=== PATIENT | female | born 1965 | race African-American/Black ===

== ENCOUNTER 2019-01-16 14:06 | Emergency (ER) | payer MEDICAID ==
[~2019-01-16] VITALS: Ht 162.6 cm; Wt 86.3 kg
[2019-01-16] MEDS ORDERED: FERR325T3 PO (14:17)
[2019-01-16] MEDS ORDERED: MEDR10TA PO (14:17)
[2019-01-16 15:27] LABS: BASO # 0.1 10^3/uL (0.0-0.2); BASO % 0.5 % (0.0-1.0); EOS # 0.6 10^3/uL (0.0-0.5); EOS % 5.7 % (0.0-3.0); HEMATOCRIT 33.8 % (36.0-47.0); LYMPH # 1.6 10^3/uL (1.5-5.0); LYMPH % 15.8 % (24.0-44.0); MEAN CORPUSCULAR HEMOGLOBIN 20.6 pg (27.0-33.0); MEAN CORPUSCULAR HGB CONC 32.5 g/dl (32.0-36.5); MEAN CORPUSCULAR VOLUME 63.3 fl (80.0-96.0); MONO # 0.7 10^3/uL (0.0-0.8); MONO % 7.3 % (0.0-5.0); NEUTROPHILS # 7.1 10^3/uL (1.5-8.5); NEUTROPHILS % 70.3 % (36.0-66.0); PLATELET COUNT, AUTOMATED 292 10^3/uL (150-450); RED BLOOD COUNT 5.34 10^6/uL (4.00-5.40); WHITE BLOOD COUNT 10.1 10^3/uL (4.0-10.0)
--- NOTE | 2019-01-16 16:53 | REP ---
Clinical: Vaginal bleeding. Technique: Transabdominal pelvic ultrasound. Findings: Enlarged heterogeneous myomatous uterus measures 25.0 x 13.0 x 21 cm. Two large heterogeneous presumed fibroids measure 12.1 x 11.7 x 11.0 cm and 11.8 x 9.7 x 8.7 cm encompassing much of the uterus and completely obscuring normal endometrium. Normal appearance of the bilateral ovaries. Right ovary measures 3.9 x 2.2 x 1.7 cm. Left ovary measures 2.9 x 1.7 x 1.8 cm. No pelvic fluid or ascites. Impression: Enlarged myomatous uterus with two large fibroids dominating the uterus and obscuring the endometrial complex. Electronically Signed by Sebastian Antunez MD 01/16/2019 04:45 P
[2019-01-16] MEDS ORDERED: PROV10TA PO (16:59)
[2019-01-16 17:15] VITALS: BP 156/90
[2019-01-16 17:34] LABS: CHLAMYDIA DNA AMPLIFICATION NEGATIVE (NEGATIVE); GC DNA AMPLIFICATION NEGATIVE (NEGATIVE)
== END 2019-01-16 17:25 | disposition home or self-care (01) ==
LOC: M ED 14:06
DX: N93.9 Abnormal uterine and vaginal bleeding, unspecified (principal); N92.0 Excessive and frequent menstruation with regular cycle; D25.9 Leiomyoma of uterus, unspecified; Z79.899 Other long term (current) drug therapy

== ENCOUNTER 2019-03-31 05:50 | Inpatient (IN) | payer MEDICAID, OTHER ==
[2019-03-31] VITALS (8 sets, daily range): BP systolic 133–149; BP diastolic 74–84
[~2019-03-31] VITALS: Ht 162.6 cm; Wt 87.1 kg
[~2019-03-31 05:50] MED LIST: FERR325T3 PO; IBUP-1114 PO; MEDR10TA PO; PROV10TA PO
[2019-03-31] MEDS ORDERED: LR 1,000 ML IV SCH ×3 (06:00→11:30)
[2019-03-31] MEDS ORDERED: ceFAZolin SOD 2 GM in IV 1 EA IV ONE (06:00)
[2019-03-31 06:31] LABS: HEMATOCRIT 29.1 % (36.0-47.0); HEMOGLOBIN 8.6 g/dl (12.0-15.5); MEAN CORPUSCULAR HEMOGLOBIN 17.7 pg (27.0-33.0); MEAN CORPUSCULAR HGB CONC 29.6 g/dl (32.0-36.5); PLATELET COUNT, AUTOMATED 266 10^3/uL (150-450); RED BLOOD COUNT 4.85 10^6/uL (4.00-5.40); WHITE BLOOD COUNT 5.3 10^3/uL (4.0-10.0)
[2019-03-31] MEDS ORDERED: ONDANSETRON 4MG/2ML VIAL (J2405) As Ordered ONE (07:05)
[2019-03-31] MEDS ORDERED: LIDOCAINE 2% INJ 100 MG/5 ML SDV (FOR ANES.) As Ordered ONE (07:05)
[2019-03-31] MEDS ORDERED: ACETAMINOPHEN 1000MG 100ML IV BTL (OFIRMEV) (J0131 PER 10MG) As Ordered ONE (07:05)
[2019-03-31] MEDS ORDERED: ROCURONIUM BROMIDE 50 MG/5 ML VIAL As Ordered ONE (07:05)
[2019-03-31] MEDS ORDERED: PROPOFOL 200 MG/20 ML VIAL As Ordered ONE (07:05)
[2019-03-31] MEDS ORDERED: SUGAMMADEX SODIUM 500 MG/5 ML VIAL (BRIDION) As Ordered ONE (07:05)
[2019-03-31] MEDS ORDERED: MIDAZOLAM INJ 2 MG/2 ML VIAL (J2250) As Ordered ONE (07:06)
[2019-03-31] MEDS ORDERED: fentaNYL 100 MCG/2 ML INJECTION (J3010) As Ordered ONE (07:06)
[2019-03-31] MEDS ORDERED: HYDROmorphone HCL 2 MG/ML 1ML VIAL (J1170) As Ordered ONE (09:05)
[2019-03-31] MEDS ORDERED: OXYC1TAB23 PO (10:54)
[2019-03-31] MEDS ORDERED: MORPHINE 10 MG/ML 1ML VIAL (J2270) As Ordered ONE (11:09)
[2019-03-31] MEDS: MORPHINE 10 MG/ML 1ML VIAL (J2270) IV PRN ×3 (11:15→11:25)
[2019-03-31] MEDS ORDERED: fentaNYL 100 MCG/2 ML INJECTION (J3010) IV PRN (11:30)
[2019-03-31] MEDS ORDERED: ONDANSETRON 4MG/2ML VIAL (J2405) IV PRN ×2 (11:30→11:45)
[2019-03-31] MEDS ORDERED: MORPHINE 4 MG/ML 1ML VIAL/SYRINGE (J2270) IV PRN (11:45)
[2019-03-31] MEDS ORDERED: PERCOCET 5MG/325MG TAB PO PRN (11:45)
--- NOTE | 2019-03-31 11:49 | RO ---
DATE OF OPERATION: 03/31/2019 PREOPERATIVE DIAGNOSIS: Large fibroid uterus. POSTOPERATIVE DIAGNOSIS: Large fibroid uterus. PROCEDURE: Total abdominal hysterectomy and bilateral salpingo-oophorectomy (TAHBSO). SURGEON: Hemanth Moise MD MRI ASSISTANT: Marta Schumacher MD ANESTHESIA: General endotracheal. ESTIMATED BLOOD LOSS: 400 mL. URINE OUTPUT: 400 mL. IV FLUIDS: 2 units red blood cells, 1400 mL of Lactated Ringer's. FINDINGS: 2150 gram large irregular fibroid uterus, normal ovaries and fallopian tubes. OPERATIVE SUMMARY: Patient was taken to the operating room where general endotracheal anesthesia was induced. She was prepped and draped in a sterile fashion in the supine position. Saavedra catheter was placed. A Pfannenstiel skin incision was made with a scalpel, carried through to the fascia, and fascia was nicked and extended and the fascia dissected off the rectus muscles. Peritoneal cavity was entered. The uterus was then exteriorized. The round ligaments were grasped with Jaylin clamps, incised and suture ligated with #0 Vicryl. A bladder flap was created. A window was created in the broad ligament and IP ligaments were cross clamped, suture ligated and incised. The uterine vessels were then skeletonized using Metzenbaum scissors. The uterine vessels were grasped with Gerson clamps perpendicular to the body of the cervix. The uterine vessels were incised and suture ligated with #0 Vicryl. A series of bites were taken parallel to the body of the cervix. Each bite was incised and suture ligated. Specimen containing the uterus, cervix, both tubes and ovaries were removed. The vaginal cuff was closed with #0 Vicryl in a running locked fashion. The pelvis was irrigated with good hemostasis noted. The ureters were identified away from the operative site. All instruments were removed. The perineum was closed with #2-0 Vicryl in a running fashion. The fascia was closed with #0 Vicryl in a running fashion. The deep layer was irrigated and closed with #3-0 chromic. The skin was closed with #4-0 Monocryl subcuticular sutures. Sponge, instrument and needle counts were correct. Marta Schumacher MD assisted throughout the entire procedure. He helped create each layer of the incision. He performed equal portions of the hysterectomy and helped to close.
[2019-03-31] MEDS: LR 1,000 ML IV SCH ×2 (13:00→20:28)
[2019-03-31] MEDS: KETOROLAC 30 MG/ML VIAL (J1885) IV PRN (15:29)
[2019-03-31] MEDS: DOCUSATE SODIUM 100 MG CAP PO SCH (20:27)
[2019-03-31] MEDS: PERCOCET 5MG/325MG TAB PO PRN (20:29)
[2019-04-01] VITALS: BP 126/69
[2019-04-01] MEDS: PERCOCET 5MG/325MG TAB PO PRN ×2 (00:45→21:39)
[2019-04-01 04:00] VITALS: BP 139/74
[2019-04-01] MEDS: KETOROLAC 30 MG/ML VIAL (J1885) IV PRN ×2 (04:44→13:53)
[2019-04-01 07:44] LABS: HEMATOCRIT 30.4 % (36.0-47.0); HEMOGLOBIN 9.4 g/dl (12.0-15.5); MEAN CORPUSCULAR HEMOGLOBIN 19.9 pg (27.0-33.0); MEAN CORPUSCULAR HGB CONC 30.9 g/dl (32.0-36.5); MEAN CORPUSCULAR VOLUME 64.3 fl (80.0-96.0); PLATELET COUNT, AUTOMATED 224 10^3/uL (150-450); RED BLOOD COUNT 4.73 10^6/uL (4.00-5.40); WHITE BLOOD COUNT 8.3 10^3/uL (4.0-10.0)
[2019-04-01 08:00] VITALS: BP 153/89
[2019-04-01] MEDS: DOCUSATE SODIUM 100 MG CAP PO SCH ×2 (09:13→20:22)
[2019-04-01 12:00] VITALS: BP 178/80
[2019-04-01 16:00] VITALS: BP 138/82
[2019-04-01 20:00] VITALS: BP 148/72
[2019-04-02] VITALS: BP 131/77
[2019-04-02 04:00] VITALS: BP 134/84
[2019-04-02 08:00] VITALS: BP 137/80
[2019-04-02] MEDS: DOCUSATE SODIUM 100 MG CAP PO SCH ×2 (10:01→21:00)
[2019-04-02] MEDS: IBUPROFEN 800 MG TAB PO SCH ×2 (10:02→17:51)
[2019-04-02 12:00] VITALS: BP 132/76
[2019-04-02 16:00] VITALS: BP 148/78
[2019-04-02 20:00] VITALS: BP 147/84
[2019-04-03] MEDS: IBUPROFEN 800 MG TAB PO SCH (01:55)
[2019-04-03 06:00] VITALS: BP 136/74
[2019-04-03] MEDS ORDERED: IBUP80TA PO (07:30)
[2019-04-03] MEDS ORDERED: DOCU100C16 PO (07:30)
[2019-04-03] MEDS: DOCUSATE SODIUM 100 MG CAP PO SCH (08:27)
--- NOTE | 2019-04-03 15:27 | DSES ---
DATE OF ADMISSION: 03/31/2019 DATE OF DISCHARGE: 04/03/2019 54-year-old, (G) 0, with massive fibroid uterus presented for definitive surgical treatment. Preoperative hemoglobin 8.6 g/dL. HOSPITAL COURSE: On 03/31/2019, the patient had a total abdominal hysterectomy with bilateral salpingo-oophorectomy. She received 2 units of blood intraoperatively. Total blood loss 400 mL. She had no complications during surgery. Her postoperative course was unremarkable. She had adequate return of bladder and bowel function. Her postoperative hemoglobin was 9.4 g/dL. She was deemed stable for discharge on postoperative day #3. ADMISSION DIAGNOSIS: Large fibroid uterus. DISCHARGE DIAGNOSIS: Large fibroid uterus. PROCEDURE: Total abdominal hysterectomy (QUINTIN), bilateral salpingo-oophorectomy (BSO). DISPOSITION: Patient will followup with Dr. Moise in 2 weeks. Instructions were reviewed.
== END 2019-04-03 09:21 | disposition home or self-care (01) | DRG 519 ==
LOC: M OR 05:50 → M PED 12:00 → M MS4PR 04-02 18:05
PROVIDERS: ADMIT Specialist; ATTEND Specialist
PROC: 0UT20ZZ Resection of Bilateral Ovaries, Open Approach (ICD-10-PCS; 2019-03-31)
PROC: 0UTC0ZZ Resection of Cervix, Open Approach (ICD-10-PCS; 2019-03-31)
PROC: 0UT70ZZ Resection of Bilateral Fallopian Tubes, Open Approach (ICD-10-PCS; 2019-03-31)
PROC: 0UT90ZZ Resection of Uterus, Open Approach (ICD-10-PCS; principal; 2019-03-31 08:30)
DX: D25.9 Leiomyoma of uterus, unspecified (principal)